=== PATIENT | female | born 1945 | race Caucasian/White ===

== ENCOUNTER 2023-11-23 09:45 | Outpatient (RCR) | payer MEDICARE, SELFPAY | END 2023-12-28 15:05 | disposition home or self-care (01) | PROVIDERS: PCP Student in an Organized Health Care Education/Training Program; Visit Provider Student in an Organized Health Care Education/Training Program | DX: S46.011A Strain of muscle(s) and tendon(s) of the rotator cuff of right shoulder, initial encounter (principal); S46.911A Strain of unspecified muscle, fascia and tendon at shoulder and upper arm level, right arm, initial encounter; Z51.89 Encounter for other specified aftercare | CPT/HCPCS: 97110; 97162 ==

== ENCOUNTER 2024-05-18 11:15 | Outpatient (RCR) | payer MEDICARE, SELFPAY | END 2024-06-11 14:21 | disposition home or self-care (01) | PROVIDERS: PCP Student in an Organized Health Care Education/Training Program; Visit Provider Student in an Organized Health Care Education/Training Program | DX: M54.9 Dorsalgia, unspecified (principal); M54.16 Radiculopathy, lumbar region; S76.011A Strain of muscle, fascia and tendon of right hip, initial encounter; Z51.89 Encounter for other specified aftercare | CPT/HCPCS: 97110; 97162 ==